=== PATIENT | female | born 1980 | race Caucasian/White ===

== ENCOUNTER 2017-01-17 10:02 | Emergency (ER) | payer MEDICAID ==
[2017-01-17 10:08] VITALS: RESP 16; TEMP 98.2; O2SAT 97
[2017-01-17] MEDS ORDERED: NS 1,000 ML IV ONE (10:24)
--- NOTE | 2017-01-17 10:25 | EDPHY ---
H & P Stated Complaint: R flank pain since sat Source: Patient Exam Limitations: No limitations - Personal History LMP (Females 10-55): 15-21 Days Ago Current Tetanus/Diphtheria Vaccine: Unsure Current Tetanus Diphtheria and Acellular Pertussis (TDAP): Unsure - Medical/Surgical History Hx Asthma: Yes Hx Chronic Respiratory Disease: No Hx Diabetes: No Hx Cardiac Disease: No Hx Renal Disease: No Hx Cirrhosis: No Hx Alcoholism: No Hx HIV/AIDS: No Hx Splenectomy or Spleen Trauma: No Other PMH: asthma,depression - Social History Smoking Status: Current every day smoker HPI/ROS: CHIEF COMPLAINT: Right flank pain HISTORY OF PRESENT ILLNESS: Patient complains of right flank pain that started Sunday morning. [id number] pain is steadily worsened. Now rated as severe when she moves, 4/10 when she is at rest. Does not radiate. No hematuria. No dysuria. Some nausea but no vomiting. No trauma or injury. She went to an urgent care prior to arrival today, where they performed a urinalysis that was reportedly normal. No other laboratory studies performed. No medications administered. She was sent here for higher level of care possibility of imaging. No other associated complaints or modifying factors. PREVIOUS ABDOMINAL SURGERIES/DIAGNOSES: Cholecystectomy 10 years ago REVIEW OF SYSTEMS: Ten systems reviewed and are negative unless otherwise noted in the HPI EXAMINATION: General Appearance: Alert, no distress Head: normocephalic, atraumatic Eyes: Pupils equal and round, no conjunctival pallor or injection ENT, Mouth: Mucous membranes moist Neck: Normal inspection, supple, non-tender Respiratory: Lungs are clear to auscultation Cardiovascular: Regular rate and rhythm. No murmur. Gastrointestinal: Abdomen is soft. Bowel sounds are present in all 4 quadrants. There is right-sided CVA tenderness. No distension No tympany. No rigidity. Non-acute abdomen. Back: non-tender, no bony abnormalities Neurological: A&O, nonfocal, normal gait Skin: Warm and dry, no rash Extremities: Nontender, no pedal edema Psychiatric: Mood and affect normal DIFFERENTIAL DIAGNOSES: Including but not limited to renal colic, nephrolithiasis, ureterolithiasis, hydronephrosis, pyelonephritis, colitis, enteritis, muscle spasm, costochondritis MDM: 10:25 a.m. Right flank pain without fever, chills, nausea vomiting. Urine dip from urgent care is positive only for minimal leukocyte esterase. Urinalysis and laboratory studies are pending here of also ordered an ultrasound of the kidneys. She is in no acute distress of pain level at 3/10 at this time. 11:15 a.m. Notified by radiologist Dr. Diallo. Ultrasound of the kidneys and collecting system reveal no acute findings. Laboratory studies of thus far completely within normal limits. Urinalysis is pending at this time. 12:50 p.m. Notified by radiologist Dr. Herman. No acute findings on the CT scan of the abdomen pelvis. Specifically no abnormality of the day kidney, ureter or bladder. I have re-evaluated the patient. She is resting comfortably minimal pain. Her pain does appear to be more musculoskeletal at this time. Discharged home with Flexeril and instructions to take anti-inflammatories for the next few days. She is to follow up with primary care physician and [facility]. She is to return here for any worsening pain, nausea, vomiting, fever, chills. She is comfortable with this plan, I have answered all of her questions, and she is discharged home in stable condition ED Precautions: Worsening pain. Fever. Bloody stools. Bloody emesis. Constipation or diarrhea. SUPERVISION: Patient was evaluated in conjunction with the supervising physician. Please see their note for details. (Bryn Hernandez) Constitutional: Initial Vital Signs Temperature (C) 98.2 F 01/17/17 10:05 Heart Rate 79 01/17/17 10:05 Respiratory Rate 16 01/17/17 10:05 Blood Pressure 130/90 H 01/17/17 10:05 O2 Sat (%) 97 01/17/17 10:05 Allergies/Adverse Reactions: No Known Allergies Allergy (Unverified 01/17/17 10:08) Home Medications: Medication Instructions Recorded Cyclobenzaprine [Flexeril 10 MG 10 mg PO TID PRN #15 tab 01/17/17 (*)] Prozac 10 MG (*) 01/17/17 Departure - Departure Disposition: Home, Routine, Self-Care Clinical Impression: Flank pain Condition: Good Instructions: Flank Pain (ED), Musculoskeletal Pain (ED) Additional Instructions: 1. Anti-inflammatories [id number] as discussed as needed 2. Follow up with primary care physician 3. Return here for worsening symptoms, fever, chills, nausea or vomiting Referrals: Esthela Romero PA [Primary Care Provider] - As per Instructions Prescriptions: Cyclobenzaprine [Flexeril 10 MG (*)] 10 mg PO TID PRN #15 tab PRN Reason: Spasms
[2017-01-17 10:33] LABS: % IMMATURE GRANULYOCYTES 0.3 % (0.0-1.1); ABSOLUTE IMMATURE GRANULOCYTES 0.03 10^3/uL (0.00-0.10); ADD DIFF? NO; ADD MORPH? NO; ADD SCAN? NO; ATYPICAL LYMPHOCYTE FLAG 20 (0-99); FRAGMENT RBC FLAG 90 (0-99); LEFT SHIFT FLG 0 (0-99); LIPEMIA HEMOLYSIS FLAG 90 (0-99); MEAN CELL HEMOGLOBIN 32.4 pg (27.9-34.1); MEAN CELL HEMOGLOBIN CONCENTR. 34.8 g/dL (32.4-36.7); MEAN CELL VOLUME 93.1 fL (81.5-99.8); MEAN PLATELET VOLUME 9.9 fL (8.7-11.7); PLATELET CLUMPS FLAG 30 (0-99); PLATELET COUNT 294 10^3/uL (150-400); RED BLOOD CELL COUNT 4.94 10^6/uL (4.18-5.33); RED CELL DISTRIBUTION WIDTH 11.5 % (11.5-15.2)
[2017-01-17 10:53] LABS: ALANINE AMINOTRANSFERASE 31 IU/L (9-52); ALBUMIN 4.1 g/dL (3.5-5.0); ALKALINE PHOSPHATASE 48 IU/L (38-126); ANION GAP 7 mEq/L (8-16); ASPARTATE AMINOTRANSFERASE 21 IU/L (14-46); BILIRUBIN,TOTAL 0.6 mg/dL (0.1-1.4); BILIRUBIN-CONJUGATED 0.4 mg/dL (0.0-0.5); BILIRUBIN-UNCONJUGATED 0.2 mg/dL (0.0-1.1); CALCIUM 9.5 mg/dL (8.5-10.4); CARBON DIOXIDE 18 mEq/l (22-31); CHLORIDE 110 mEq/L (97-110); CREATININE 0.7 mg/dL (0.6-1.0); GLOMERULAR FILTRATION RATE > 60; GLUCOSE 91 mg/dL (70-100); POTASSIUM 4.7 mEq/L (3.5-5.2); SODIUM 135 mEq/L (134-144)
[2017-01-17] MEDS ORDERED: KETOROLAC 30 MG/1 ML SDV IVP ONE (10:56)
[2017-01-17 11:54] LABS: COLOR PALE YELLOW; LEUKOCYTE ESTERASE,URINE NEGATIVE (NEGATIVE); NITRITE,URINE NEGATIVE (NEGATIVE)
[2017-01-17 13:27] VITALS: BP 124/82; PULSE 70
== END 2017-01-17 13:24 | disposition home or self-care (01) ==
DX: R10.9 Unspecified abdominal pain (principal); E86.9 Volume depletion, unspecified; J45.909 Unspecified asthma, uncomplicated; F17.200 Nicotine dependence, unspecified, uncomplicated; Z90.49 Acquired absence of other specified parts of digestive tract
CPT/HCPCS: 96374; J1885